=== PATIENT | female | born 1955 ===

== ENCOUNTER 2016-11-04 15:35 | Emergency (ER) | payer MEDICAID ==
--- NOTE | 2016-11-04 20:21 | ED PDOC ---
- Laboratory Results Result Diagrams: 11/04/16 18:48 11/04/16 18:48 Medical Decision Making Medical Decision Makin:00 Patient is signed out to me by Felix Juan MD pending labs, CT scan, and reevaluation Pt reports marked improvement in symptoms. CT Scan shows no acute findings and is c/w pt's previous dx cirhossis. Pt has existing f/u in December with Dr Roman. she has also been fiven referral to dr Wood as she expresses concern about delay iun f/u She is stable on dc Dx Liver Cirhossis, Abd Pain Rx Bentyl Scribe Attestation: Documented by Teetee Salazar, acting as a scribe for Da Cox MD. Provider Scribe Attestation: All medical record entries made by the Scribe were at my direction and personally dictated by me. I have reviewed the chart and agree that the record accurately reflects my personal performance of the history, physical exam, medical decision making, and the department course for this patient. I have also personally directed, reviewed, and agree with the discharge instructions and disposition. Disposition - Clinical Impression Clinical Impression: Abdominal pain, Liver cirrhosis - POA Present On Arrival: None - Disposition Referrals: [facility] [Outside] [place] CASTILLO,MD Gudelia [Medical Doctor] - Disposition: Routine/Home Disposition Time: 00:00 Condition: STABLE Prescriptions: Dicyclomine [Bentyl] 20 mg PO Q12 PRN #20 tab PRN Reason: abdominal pain Instructions: Cirrhosis (ED), Abdominal Pain (ED) Print Language: BRUNEIAN
[2016-11-04 20:24] LABS: BASO % 0.4 % (0.0-2.0); EOS % 0.2 % (0.0-4.0); HEMATOCRIT 43.4 % (34.0-47.0); LYMPH # 0.7 K/uL (1.0-4.3); LYMPH % 10.9 % (20.0-40.0); MEAN CELL VOLUME 87.5 fl (81.0-99.0); MEAN CORPUSCULAR HEMOGLOBIN 29.9 pg (27.0-31.0); MEAN CORPUSCULAR HGB CONC 34.1 g/dL (33.0-37.0); MONO # 0.6 K/uL (0.0-0.8); MONO % 8.8 % (0.0-10.0); NEUT # 5.1 K/uL (1.8-7.0); NEUT % 79.7 % (50.0-75.0); NRBC % 0.1 % (0.0-0.0); RED CELL DISTRIBUTION WIDTH 13.2 % (11.5-14.5); WHITE BLOOD COUNT 6.4 K/uL (4.8-10.8)
[2016-11-04 20:31] LABS: ALB/GLOB RATIO 1.1 (1.0-2.1); ALKALINE PHOSPHATASE 137 U/L (38-126); ALT/SGPT 54 U/L (9-52); AST/SGOT 105 U/L (14-36); BILIRUBIN,TOTAL 1.2 mg/dl (0.2-1.3); BLOOD UREA NITROGEN 9 mg/dl (7-17); CALCIUM 9.5 mg/dL (8.4-10.2); CARBON DIOXIDE 21 mmol/L (22-30); CHLORIDE 97 mmol/L (98-107); GFR AFRICAN-AMERICAN > 60; GLUCOSE,RANDOM 150 mg/dL (65-105); SODIUM 135 mmol/l (132-148); TOTAL PROTEIN 9.7 G/DL (6.3-8.2)
[2016-11-04 20:35] LABS: POTASSIUM 4.5 MMOL/L (3.6-5.0)
[2016-11-04 20:52] LABS: PARTIAL THROMBOPLASTIN TIME 23.3 SECONDS (23.3-32.5)
[2016-11-04] MEDS ORDERED: Iohexol 300 100 ML IJ ONE (22:28)
[2016-11-04] MEDS ORDERED: Sodium Chloride 0.9% 50 ML IV ONE (22:28)
[2016-11-05 00:34] VITALS: RESP 17
[2016-11-05 00:40] VITALS: BP 136/83; PULSE 83; TEMP 98.2; O2SAT 99
--- NOTE | 2016-11-05 13:10 | CT ---
PROCEDURE: CT Abdomen and Pelvis with oral and IV contrast. HISTORY: abd pain COMPARISON: None available TECHNIQUE: Contiguous axial images of the abdomen and pelvis. Oral and IV contrast was administered. Coronal and Sagittal reformats generated and reviewed. Contrast dose: 95 mL Omnipaque 300 Radiation dose: Total exam DLP = 1227.37 mGy-cm. This CT exam was performed using one or more of the following dose reduction techniques: Automated exposure control, adjustment of the mA and/or kV according to patient size, and/or use of iterative reconstruction technique. FINDINGS: LOWER THORAX: 5 mm right lung base calcified granuloma. Minimal basilar atelectasis. No visible pleural effusion or pneumothorax. Small hiatal hernia. LIVER: Mildly nodular hepatic contour. Superior most hepatic dome excluded from view. Hypoattenuation of the liver compatible with hepatic steatosis. Too small to characterize 9 mm low-density lesion within the right hepatic lobe; statistically cyst or hemangioma. GALLBLADDER AND BILE DUCTS: Gallbladder is not identified, presumably surgically removed however surgical clips are not evident. PANCREAS: Unremarkable. SPLEEN: Unremarkable. ADRENALS: Unremarkable. KIDNEYS AND URETERS: The kidneys enhance symmetrically. No hydronephrosis or obstructing renal calculus. Too small to characterize 4 mm hypodensity at the right upper pole, statistically likely cyst. BLADDER: Distended urinary bladder appears otherwise grossly unremarkable. REPRODUCTIVE: Uterus is present. APPENDIX: No secondary signs of acute appendicitis. BOWEL: The stomach is nondistended. The bowel loops appear within normal limits of caliber without evidence of intestinal obstruction. PERITONEUM: No significant free fluid. No definite free air. LYMPH NODES: No bulky lymphadenopathy identified. VASCULATURE: No aortic aneurysm. BONES: No acute osseous abnormality is detected. OTHER FINDINGS: None. IMPRESSION: Mildly nodular hepatic contour ; correlate for cirrhosis. Superior most hepatic dome excluded from view. Hepatic steatosis. Too small to characterize 9 mm low-density lesion within the right hepatic lobe; statistically cyst or hemangioma. Too small to characterize 4 mm hypodensity at the right upper pole kidney, statistically likely cyst. Additional findings as above. Preliminary impression was provided by virtual radiologic.
== END 2016-11-05 00:05 | disposition home or self-care (01) ==
LOC: H.ER 15:35
DX: R10.9 Unspecified abdominal pain (principal); K74.60 Unspecified cirrhosis of liver